=== PATIENT | male | born 1960 | race Caucasian/White ===

== ENCOUNTER 2021-11-19 09:47 | Inpatient (IN) ==
[2021-11-19 11:24] LABS: Alanine Aminotransferase 54 Units/L (7-52); Albumin 3.1 g/dL (3.5-5.7); Albumin/Globulin Ratio 1.1 (1.1-2.2); Alkaline Phosphatase 86 Units/L (34-104); Aspartate Amino Transferase 27 Units/L (13-39); BUN/Creatinine Ratio 12 (6-26); Bilirubin,Total 0.4 mg/dL (0.3-1.0); Blood Urea Nitrogen 12 mg/dL (8-23); Calcium 8.4 mg/dL (8.6-10.3); Carbon Dioxide 26 mEq/L (23-29); Chloride 109 mEq/L (98-107); Globulin 2.8 g/dL (2.4-3.5); Glucose 101 mg/dL (70-105); Osmolality,Calculated 290 (280-300); Potassium 4.4 mEq/L (3.5-5.1); Sodium 140 mEq/L (136-145); Total Protein 5.9 g/dL (6.4-8.9); eGFR For African Americans > 60 (> 60); eGFR For Non-African Americans > 60 (> 60)
[2021-11-19 11:38] LABS: Basophils # 0.1 K/mcL (0.0-0.2); Basophils % 0.5 %; Eosinophils # 0.2 K/mcL (0.0-0.6); Eosinophils % 1.7 %; Hematocrit 27.7 % (37.5-50.1); Hemoglobin 9.2 g/dL (12.9-16.9); Immature Granulocytes % 1.9 % (0-4); Lymphocytes # 1.5 K/mcL (0.6-4.6); Lymphocytes % 14.2 %; Mean Corpuscular HGB Conc 33.2 g/dL (31.6-35.5); Mean Corpuscular Hemoglobin 30.2 pg (28.0-33.3); Mean Corpuscular Volume 90.8 fL (83.0-100.0); Mean Platelet Volume 10.5 fL (9.4-12.4); Monocytes # 0.9 K/mcL (0.0-1.3); Monocytes % 8.7 %; Neutrophils # 7.7 K/mcL (1.6-8.9); Platelet Count 223 K/mcL (140-400); Red Blood Count 3.05 M/mcL (4.19-5.50); Red Cell Distribution Width 14.7 % (11.5-14.5); White Blood Count 10.6 K/mcL (4.3-11.1)
[2021-11-19 12:00] LABS: INR 1.2; Prothrombin Time 13.6 Seconds (9.4-12.1)
[2021-11-19] MEDS ORDERED: Naloxone 0.4 MG/ML INJ IVP PRN (13:16)
[2021-11-19] MEDS ORDERED: Ondansetron 4 MG/2 ML VIAL IVP PRN (13:16)
[2021-11-19] MEDS ORDERED: Acetaminophen 325 MG TABLET PO PRN (13:16)
[2021-11-19] MEDS ORDERED: Isovue-370 500 ML BOTTLE IVP ONE (15:21)
[2021-11-19] MEDS: Topiramate 25 MG TABLET PO SCH ×2 (15:51→21:04)
[2021-11-19] MEDS: carBAMazepine 200 MG TABLET PO SCH ×2 (15:51→21:04)
[2021-11-19] MEDS: Metoprolol XL (24 HR) Succ 50 MG TAB.ER.24H PO SCH (17:15)
[2021-11-19] MEDS: Gabapentin 300 MG CAPSULE PO SCH (21:04)
[2021-11-19 21:36] LABS: Hematocrit 26.1 % (37.5-50.1); Hemoglobin 8.4 g/dL (12.9-16.9)
[2021-11-20 06:16] LABS: Hematocrit 24.5 % (37.5-50.1); Hemoglobin 7.9 g/dL (12.9-16.9); Mean Corpuscular HGB Conc 32.2 g/dL (31.6-35.5); Mean Corpuscular Hemoglobin 29.5 pg (28.0-33.3); Mean Corpuscular Volume 91.4 fL (83.0-100.0); Mean Platelet Volume 10.6 fL (9.4-12.4); Platelet Count 208 K/mcL (140-400); Red Blood Count 2.68 M/mcL (4.19-5.50); Red Cell Distribution Width 14.9 % (11.5-14.5); White Blood Count 8.3 K/mcL (4.3-11.1)
[2021-11-20 06:44] LABS: BUN/Creatinine Ratio 13 (6-26); Blood Urea Nitrogen 13 mg/dL (8-23); Calcium 8.5 mg/dL (8.6-10.3); Carbon Dioxide 26 mEq/L (23-29); Chloride 107 mEq/L (98-107); Glucose 103 mg/dL (70-105); Magnesium 2.1 mg/dL (1.6-2.6); Osmolality,Calculated 288 (280-300); Potassium 3.9 mEq/L (3.5-5.1); Sodium 139 mEq/L (136-145); eGFR For African Americans > 60 (> 60); eGFR For Non-African Americans > 60 (> 60)
[2021-11-20] MEDS ORDERED: Tiotropium 10 INH DOSE IH ONE (07:26)
[2021-11-20] MEDS: Tiotropium 10 INH DOSE IH SCH (07:45)
[2021-11-20] MEDS ORDERED: Isovue-370 500 ML BOTTLE IVP ONE (08:22)
[2021-11-20] MEDS: Finasteride 5 MG TABLET PO SCH (09:29)
[2021-11-20] MEDS: Topiramate 25 MG TABLET PO SCH ×3 (09:29→20:53)
[2021-11-20] MEDS: Loratadine 10 MG TABLET PO SCH (09:29)
[2021-11-20] MEDS: Fluticasone Propionate Nasal 50 MCG/SPRAY BOTTLE NS SCH (09:29)
[2021-11-20] MEDS: Furosemide 20 MG TABLET PO SCH (09:29)
[2021-11-20] MEDS: Aspirin 81 MG TAB.CHEW PO SCH (09:29)
[2021-11-20] MEDS: carBAMazepine 200 MG TABLET PO SCH ×3 (09:29→20:52)
[2021-11-20] MEDS: Metoprolol XL (24 HR) Succ 50 MG TAB.ER.24H PO SCH (17:55)
[2021-11-20] MEDS: Gabapentin 300 MG CAPSULE PO SCH (20:52)
[2021-11-21 01:56] LABS: Basophils % 0.3 %; Eosinophils # 0.2 K/mcL (0.0-0.6); Eosinophils % 2.5 %; Hematocrit 22.9 % (37.5-50.1); Hemoglobin 7.4 g/dL (12.9-16.9); Immature Granulocytes % 1.8 % (0-4); Lymphocytes # 1.9 K/mcL (0.6-4.6); Lymphocytes % 21.6 %; Mean Corpuscular HGB Conc 32.3 g/dL (31.6-35.5); Mean Corpuscular Hemoglobin 29.4 pg (28.0-33.3); Mean Corpuscular Volume 90.9 fL (83.0-100.0); Mean Platelet Volume 10.6 fL (9.4-12.4); Monocytes # 0.8 K/mcL (0.0-1.3); Monocytes % 9.1 %; Neutrophils # 5.7 K/mcL (1.6-8.9); Nucleated Red Blood Cells 0.2 /100 WBC (0); Platelet Count 232 K/mcL (140-400); Red Blood Count 2.52 M/mcL (4.19-5.50); Segmented Neutrophils % 64.7 %; White Blood Count 8.8 K/mcL (4.3-11.1)
[2021-11-21 02:13] LABS: BUN/Creatinine Ratio 15 (6-26); Blood Urea Nitrogen 14 mg/dL (8-23); Calcium 8.5 mg/dL (8.6-10.3); Carbon Dioxide 25 mEq/L (23-29); Chloride 106 mEq/L (98-107); Glucose 91 mg/dL (70-105); Osmolality,Calculated 286 (280-300); Potassium 3.7 mEq/L (3.5-5.1); Sodium 138 mEq/L (136-145); eGFR For African Americans > 60 (> 60); eGFR For Non-African Americans > 60 (> 60)
[2021-11-21] MEDS: Tiotropium 10 INH DOSE IH SCH (07:27)
[2021-11-21] MEDS: Topiramate 25 MG TABLET PO SCH ×3 (09:17→21:22)
[2021-11-21] MEDS: carBAMazepine 200 MG TABLET PO SCH ×3 (09:17→21:21)
[2021-11-21] MEDS: Finasteride 5 MG TABLET PO SCH (09:17)
[2021-11-21] MEDS: Aspirin 81 MG TAB.CHEW PO SCH (09:17)
[2021-11-21] MEDS: Furosemide 20 MG TABLET PO SCH (09:18)
[2021-11-21] MEDS: Loratadine 10 MG TABLET PO SCH (09:18)
[2021-11-21] MEDS: Fluticasone Propionate Nasal 50 MCG/SPRAY BOTTLE NS SCH (09:18)
[2021-11-21] MEDS: Metoprolol XL (24 HR) Succ 50 MG TAB.ER.24H PO SCH (16:39)
[2021-11-21] MEDS: Gabapentin 300 MG CAPSULE PO SCH (21:21)
[2021-11-22 05:09] LABS: Basophils % 0.5 %; Eosinophils # 0.2 K/mcL (0.0-0.6); Eosinophils % 2.3 %; Hematocrit 24.2 % (37.5-50.1); Hemoglobin 7.7 g/dL (12.9-16.9); Lymphocytes # 1.7 K/mcL (0.6-4.6); Lymphocytes % 19.8 %; Mean Corpuscular HGB Conc 31.8 g/dL (31.6-35.5); Mean Corpuscular Hemoglobin 29.5 pg (28.0-33.3); Mean Corpuscular Volume 92.7 fL (83.0-100.0); Mean Platelet Volume 10.5 fL (9.4-12.4); Monocytes # 0.7 K/mcL (0.0-1.3); Monocytes % 8.2 %; Neutrophils # 5.7 K/mcL (1.6-8.9); Nucleated Red Blood Cells 0.2 /100 WBC (0); Platelet Count 216 K/mcL (140-400); Red Blood Count 2.61 M/mcL (4.19-5.50); Red Cell Distribution Width 15.3 % (11.5-14.5); Segmented Neutrophils % 67.2 %; White Blood Count 8.4 K/mcL (4.3-11.1)
[2021-11-22 05:29] LABS: BUN/Creatinine Ratio 15 (6-26); Blood Urea Nitrogen 15 mg/dL (8-23); Calcium 8.5 mg/dL (8.6-10.3); Carbon Dioxide 25 mEq/L (23-29); Chloride 108 mEq/L (98-107); Glucose 102 mg/dL (70-105); Osmolality,Calculated 291 (280-300); Potassium 3.9 mEq/L (3.5-5.1); Sodium 140 mEq/L (136-145); eGFR For African Americans > 60 (> 60); eGFR For Non-African Americans > 60 (> 60)
[2021-11-22] MEDS: Tiotropium 10 INH DOSE IH SCH (07:51)
[2021-11-22] MEDS: Furosemide 20 MG TABLET PO SCH (08:16)
[2021-11-22] MEDS: Aspirin 81 MG TAB.CHEW PO SCH (08:16)
[2021-11-22] MEDS: carBAMazepine 200 MG TABLET PO SCH ×2 (08:16→16:12)
[2021-11-22] MEDS: Topiramate 25 MG TABLET PO SCH ×2 (08:17→16:12)
[2021-11-22] MEDS: Loratadine 10 MG TABLET PO SCH (08:17)
[2021-11-22] MEDS: Fluticasone Propionate Nasal 50 MCG/SPRAY BOTTLE NS SCH (08:17)
[2021-11-22] MEDS: Finasteride 5 MG TABLET PO SCH (08:17)
[2021-11-22 10:38] VITALS: O2SAT 95
[2021-11-22 14:24] LABS: Adenovirus Not Detected (Not Detect); Bordetella Pertussis Not Detected (Not Detect); Chlamydophila pneumoniae Not Detected (Not Detect); Coronavirus 229E Not Detected (Not Detect); Coronavirus HKU1 Not Detected (Not Detect); Coronavirus NL63 Not Detected (Not Detect); Coronavirus OC43 Not Detected (Not Detect); Human Metapneumovirus Not Detected (Not Detect); Human Rhinovirus/Enterovirus Not Detected (Not Detect); Influenza A Subtype 2009 H1 Not Detected (Not Detect); Influenza B Not Detected (Not Detect); Mycoplasma pneumoniae Not Detected (Not Detect); Parainfluenza Virus 1 Not Detected (Not Detect); Parainfluenza Virus 2 Not Detected (Not Detect); Parainfluenza Virus 3 Not Detected (Not Detect); Parainfluenza Virus 4 Not Detected (Not Detect); Respiratory Syncytial Virus Not Detected (Not Detect); SARS-CoV-2 Not Detected (Not Detect)
[2021-11-22 16:06] VITALS: BP 114/55; PULSE 76; TEMP 98.1
== END 2021-11-22 17:31 | DRG 699 ==
LOC: EMEROOARM 09:47 → 2ANU 09:47
PROVIDERS: ADMIT Internal Medicine; ATTEND Internal Medicine

== ENCOUNTER 2021-11-24 00:55 | Inpatient (IN) ==
[2021-11-24] MEDS ORDERED: Melatonin 3 MG TABLET PO PRN (08:04)
[2021-11-24] MEDS ORDERED: Naloxone 0.4 MG/ML INJ IVP PRN (08:04)
[2021-11-24] MEDS ORDERED: Acetaminophen 325 MG TABLET PO PRN (08:04)
[2021-11-24] MEDS ORDERED: Ondansetron 4 MG/2 ML VIAL IVP PRN (08:04)
[2021-11-24] MEDS ORDERED: Vancomycin 2,000 MG/520 ML IV.SOLN IVPB ONE (09:00)
[2021-11-24 09:18] LABS: BUN/Creatinine Ratio 18 (6-26); Blood Urea Nitrogen 17 mg/dL (8-23); eGFR For African Americans > 60 (> 60); eGFR For Non-African Americans > 60 (> 60)
[2021-11-24] MEDS ORDERED: Nitroglycerin 0.4 MG TAB.SUBL SL PRN (09:47)
[2021-11-24 10:07] LABS: C-Reactive Protein 144 mg/L (Less than 10)
[2021-11-24] MEDS: Metoprolol XL (24 HR) Succ 50 MG TAB.ER.24H PO SCH (11:09)
[2021-11-24] MEDS: Cefepime HCl 2,000 MG in 0.9 % Sodium Chloride 10 ML IVP SCH ×3 (13:11→23:58)
[2021-11-24] MEDS: 0.9 % Sodium Chloride 1,000 ML IVC SCH ×2 (13:11→21:16)
[2021-11-24] MEDS: *HR* Heparin 5,000 UNIT/ML VIAL SQ SCH ×2 (13:12→21:08)
[2021-11-25] MEDS ORDERED: Vancomycin 1,750 MG/517.5 ML IV.SOLN IVPB SCH (01:00)
[2021-11-25 04:46] LABS: Basophils % 0.3 %; Eosinophils # 0.1 K/mcL (0.0-0.6); Hematocrit 25.8 % (37.5-50.1); Immature Granulocytes % 0.5 % (0-4); Lymphocytes # 0.9 K/mcL (0.6-4.6); Lymphocytes % 7.7 %; Mean Corpuscular Hemoglobin 28.6 pg (28.0-33.3); Mean Corpuscular Volume 92.1 fL (83.0-100.0); Mean Platelet Volume 10.4 fL (9.4-12.4); Monocytes # 0.9 K/mcL (0.0-1.3); Monocytes % 7.5 %; Platelet Count 251 K/mcL (140-400); Red Cell Distribution Width 15.7 % (11.5-14.5); White Blood Count 12.1 K/mcL (4.3-11.1)
[2021-11-25 04:59] LABS: BUN/Creatinine Ratio 19 (6-26); Blood Urea Nitrogen 16 mg/dL (8-23); Calcium 8.6 mg/dL (8.6-10.3); Carbon Dioxide 23 mEq/L (23-29); Chloride 107 mEq/L (98-107); Glucose 121 mg/dL (70-105); Osmolality,Calculated 286 (280-300); Potassium 3.6 mEq/L (3.5-5.1); Sodium 137 mEq/L (136-145); eGFR For African Americans > 60 (> 60); eGFR For Non-African Americans > 60 (> 60)
[2021-11-25] MEDS: *HR* Heparin 5,000 UNIT/ML VIAL SQ SCH (06:00)
[2021-11-25] MEDS ORDERED: *HR* HYDROcodone/Acet 5/325 mg TABLET PO PRN (07:46)
[2021-11-25 09:19] LABS: Troponin I 0.04 ng/mL (< 0.04)
[2021-11-25] MEDS: Finasteride 5 MG TABLET PO SCH (09:25)
[2021-11-25] MEDS: Fluticasone Propionate Nasal 50 MCG/SPRAY BOTTLE NS SCH (09:25)
[2021-11-25] MEDS: Topiramate 25 MG TABLET PO SCH ×3 (09:25→21:42)
[2021-11-25] MEDS: Loratadine 10 MG TABLET PO SCH (09:25)
[2021-11-25] MEDS: carBAMazepine 200 MG TABLET PO SCH ×3 (09:25→21:42)
[2021-11-25] MEDS: Furosemide 20 MG TABLET PO SCH (09:26)
[2021-11-25] MEDS: Metoprolol XL (24 HR) Succ 50 MG TAB.ER.24H PO SCH ×2 (09:26→15:46)
[2021-11-25] MEDS: Cefepime HCl 2,000 MG in 0.9 % Sodium Chloride 10 ML IVP SCH ×3 (09:26→23:57)
[2021-11-25] MEDS: Tiotropium 10 INH DOSE IH SCH (10:32)
[2021-11-25] MEDS ORDERED: Perflutren Lipid Microsphere 1.3 ML in 0.9 % Sodium Chloride 8.7 ML IVP PRN (13:25)
[2021-11-25] MEDS ORDERED: Aspirin 81 MG TAB.CHEW PO SCH (13:30)
[2021-11-25 15:23] LABS: Bacteria,Urine Few per hpf (None-Few); Bilirubin,Urine Negative (Negative); Blood,Urine Small (Negative); Clarity,Urine Turbid (Clear); Color,Urine Light-Yellow (Yellow); Glucose,Urine (UA) Normal (Normal); Hyaline Casts,Urine Few per lpf (None Seen); Ketones,Urine Negative (Negative); Leukocyte Esterase,Urine Large (Negative); Mucus,Urine Few per lpf (None-Few); Nitrite,Urine Negative (Negative); Protein,Urine 30 mg/dL (Neg-Trace); Specific Gravity,Urine 1.015 (1.010-1.025); Squamous Epithelial Cell,Urine Few per hpf (None-Few); Transitional Epi Cells,Urine Few per hpf (None-Few); Urobilinogen,Urine Normal (Normal); WBC,Urine 50-100 per hpf (0-3)
[2021-11-25] MEDS: Gabapentin 300 MG CAPSULE PO SCH (21:42)
[2021-11-26 01:51] LABS: Basophils % 0.2 %; Eosinophils # 0.2 K/mcL (0.0-0.6); Eosinophils % 1.6 %; Hematocrit 26.9 % (37.5-50.1); Hemoglobin 8.5 g/dL (12.9-16.9); Immature Granulocytes % 0.6 % (0-4); Lymphocytes # 0.8 K/mcL (0.6-4.6); Lymphocytes % 7.9 %; Mean Corpuscular HGB Conc 31.6 g/dL (31.6-35.5); Mean Corpuscular Hemoglobin 29.1 pg (28.0-33.3); Mean Corpuscular Volume 92.1 fL (83.0-100.0); Mean Platelet Volume 10.3 fL (9.4-12.4); Monocytes # 0.9 K/mcL (0.0-1.3); Monocytes % 8.2 %; Neutrophils # 8.6 K/mcL (1.6-8.9); Platelet Count 269 K/mcL (140-400); Red Blood Count 2.92 M/mcL (4.19-5.50); Red Cell Distribution Width 15.5 % (11.5-14.5); Segmented Neutrophils % 81.5 %; White Blood Count 10.6 K/mcL (4.3-11.1)
[2021-11-26 02:08] LABS: BUN/Creatinine Ratio 18 (6-26); Blood Urea Nitrogen 16 mg/dL (8-23); Calcium 8.5 mg/dL (8.6-10.3); Carbon Dioxide 21 mEq/L (23-29); Chloride 107 mEq/L (98-107); Glucose 118 mg/dL (70-105); Magnesium 1.9 mg/dL (1.6-2.6); Osmolality,Calculated 284 (280-300); Phosphorous 2.6 mg/dL (2.7-4.5); Sodium 136 mEq/L (136-145); eGFR For African Americans > 60 (> 60); eGFR For Non-African Americans > 60 (> 60)
[2021-11-26] MEDS: Cefepime HCl 2,000 MG in 0.9 % Sodium Chloride 10 ML IVP SCH ×3 (08:54→23:08)
[2021-11-26] MEDS: Loratadine 10 MG TABLET PO SCH (08:55)
[2021-11-26] MEDS: carBAMazepine 200 MG TABLET PO SCH ×3 (08:55→21:14)
[2021-11-26] MEDS: Furosemide 20 MG TABLET PO SCH (08:55)
[2021-11-26] MEDS: Finasteride 5 MG TABLET PO SCH (08:56)
[2021-11-26] MEDS: Topiramate 25 MG TABLET PO SCH ×3 (08:56→21:15)
[2021-11-26] MEDS: Fluticasone Propionate Nasal 50 MCG/SPRAY BOTTLE NS SCH (08:57)
[2021-11-26] MEDS: Tiotropium 10 INH DOSE IH SCH (09:08)
[2021-11-26] MEDS: Metoprolol XL (24 HR) Succ 50 MG TAB.ER.24H PO SCH (17:26)
[2021-11-26] MEDS: Gabapentin 300 MG CAPSULE PO SCH (21:14)
[2021-11-27 06:07] LABS: Hemoglobin 8.2 g/dL (12.9-16.9); Mean Corpuscular HGB Conc 31.5 g/dL (31.6-35.5); Mean Corpuscular Hemoglobin 28.7 pg (28.0-33.3); Mean Corpuscular Volume 90.9 fL (83.0-100.0); Mean Platelet Volume 10.3 fL (9.4-12.4); Platelet Count 266 K/mcL (140-400); Red Blood Count 2.86 M/mcL (4.19-5.50); Red Cell Distribution Width 15.4 % (11.5-14.5); White Blood Count 9.2 K/mcL (4.3-11.1)
[2021-11-27 06:24] LABS: INR 1.3; Prothrombin Time 14.8 Seconds (9.4-12.1)
[2021-11-27 06:29] LABS: BUN/Creatinine Ratio 19 (6-26); Blood Urea Nitrogen 17 mg/dL (8-23); Calcium 8.8 mg/dL (8.6-10.3); Carbon Dioxide 20 mEq/L (23-29); Chloride 104 mEq/L (98-107); Glucose 110 mg/dL (70-105); Osmolality,Calculated 280 (280-300); Potassium 3.6 mEq/L (3.5-5.1); Sodium 134 mEq/L (136-145); eGFR For African Americans > 60 (> 60); eGFR For Non-African Americans > 60 (> 60)
[2021-11-27] MEDS: Tiotropium 10 INH DOSE IH SCH (07:31)
[2021-11-27] MEDS: Cefepime HCl 2,000 MG in 0.9 % Sodium Chloride 10 ML IVP SCH (07:34)
[2021-11-27] MEDS: Furosemide 20 MG TABLET PO SCH (07:35)
[2021-11-27] MEDS: Finasteride 5 MG TABLET PO SCH (07:35)
[2021-11-27] MEDS: Topiramate 25 MG TABLET PO SCH ×3 (07:35→23:28)
[2021-11-27] MEDS: Loratadine 10 MG TABLET PO SCH (07:36)
[2021-11-27] MEDS: carBAMazepine 200 MG TABLET PO SCH ×3 (07:36→23:30)
[2021-11-27] MEDS: Fluticasone Propionate Nasal 50 MCG/SPRAY BOTTLE NS SCH (07:37)
[2021-11-27] MEDS ORDERED: Lidocaine HCL 4 ML Topical Solution (Laryng-O-Jet Kit Sterile Pak) TP ONE (15:40)
[2021-11-27] MEDS ORDERED: Iopamidol - 300 100 ML INFUS..BTL ONE (15:40)
[2021-11-27] MEDS ORDERED: Lidocaine -MPF 2% 2 ML VIAL ONE (15:43)
[2021-11-27] MEDS ORDERED: *HR* FentaNYL (PF) 100 MCG/2 ML VIAL ONE (15:43)
[2021-11-27] MEDS ORDERED: *HR* Succinylcholine 200 MG/10 ML VIAL IVP ONE (15:43)
[2021-11-27] MEDS ORDERED: *HR* Propofol 200 MG/20 ML VIAL IVP ONE (15:43)
[2021-11-27] MEDS: Metoprolol XL (24 HR) Succ 50 MG TAB.ER.24H PO SCH (16:34)
[2021-11-27] MEDS ORDERED: *HR* HYDROmorphone PF 0.5 MG/0.5 ML SYRINGE IVP PRN (16:58)
[2021-11-27] MEDS ORDERED: ceFAZolin 3,000 MG in Water for inj. (sterile) 30 ML IVP ONE (16:59)
[2021-11-27] MEDS ORDERED: *HR* Rocuronium Bromide 50 MG/5 ML VIAL ONE (17:57)
[2021-11-27] MEDS ORDERED: CeFAZolin Syr 3,000MG/30 ML 3,000 MG/30 ML SYRINGE IVPB ONE ×2 (18:30→20:08)
[2021-11-27] MEDS ORDERED: Sugammadex Sodium 200 MG/2 ML VIAL IV ONE (18:34)
[2021-11-27] MEDS ORDERED: Nitroglycerin 0.4 MG TAB.SUBL SL PRN (20:08)
[2021-11-27] MEDS ORDERED: Acetaminophen 325 MG TABLET PO PRN (20:08)
[2021-11-27] MEDS ORDERED: *HR* HYDROcodone/Acet 5/325 mg TABLET PO PRN (20:08)
[2021-11-27] MEDS ORDERED: Naloxone 0.4 MG/ML INJ IVP PRN (20:08)
[2021-11-27] MEDS ORDERED: Ondansetron 4 MG/2 ML VIAL IVP PRN (20:08)
[2021-11-27] MEDS ORDERED: Cefdinir 300 MG CAPSULE PO SCH (21:00)
[2021-11-27] MEDS: Melatonin 3 MG TABLET PO PRN (21:38)
[2021-11-27] MEDS: Gabapentin 300 MG CAPSULE PO SCH (23:27)
[2021-11-27] MEDS: Cefdinir 300 MG CAPSULE PO SCH (23:28)
[2021-11-28 03:06] LABS: Hematocrit 24.9 % (37.5-50.1); Hemoglobin 7.7 g/dL (12.9-16.9)
[2021-11-28 03:27] LABS: BUN/Creatinine Ratio 19 (6-26); Blood Urea Nitrogen 18 mg/dL (8-23); Calcium 8.4 mg/dL (8.6-10.3); Carbon Dioxide 22 mEq/L (23-29); Chloride 105 mEq/L (98-107); Glucose 98 mg/dL (70-105); Osmolality,Calculated 286 (280-300); Potassium 3.7 mEq/L (3.5-5.1); Sodium 137 mEq/L (136-145); eGFR For African Americans > 60 (> 60); eGFR For Non-African Americans > 60 (> 60)
[2021-11-28] MEDS ORDERED: Tiotropium 10 INH DOSE IH ONE (07:39)
[2021-11-28] MEDS: Tiotropium 10 INH DOSE IH SCH (07:48)
[2021-11-28] MEDS ORDERED: Iopamidol - 370 500 ML MLS IVP ONE (08:49)
[2021-11-28] MEDS: Cefdinir 300 MG CAPSULE PO SCH ×2 (10:04→21:04)
[2021-11-28] MEDS: Finasteride 5 MG TABLET PO SCH (10:04)
[2021-11-28] MEDS: Topiramate 25 MG TABLET PO SCH ×3 (10:05→21:04)
[2021-11-28] MEDS: Loratadine 10 MG TABLET PO SCH (10:05)
[2021-11-28] MEDS: Furosemide 20 MG TABLET PO SCH (10:05)
[2021-11-28] MEDS: carBAMazepine 200 MG TABLET PO SCH ×3 (10:06→21:04)
[2021-11-28] MEDS: Fluticasone Propionate Nasal 50 MCG/SPRAY BOTTLE NS SCH (10:15)
[2021-11-28 11:53] LABS: Lactate Dehydrogenase 212 Units/L (140-271); Total Protein 5.8 g/dL (6.4-8.9)
[2021-11-28 16:53] LABS: Total Protein,Pleural Fluid 4.6 g/dL
[2021-11-28] MEDS: Metoprolol XL (24 HR) Succ 50 MG TAB.ER.24H PO SCH (17:48)
[2021-11-28 18:18] LABS: Appearance of Pleural Fl Hazy (Clear)
[2021-11-28 18:22] LABS: RBC,Pleural Fluid 18000 RBC/mcL
[2021-11-28 19:39] LABS: Basophils,Pleural Fluid 0 %
[2021-11-28] MEDS: Gabapentin 300 MG CAPSULE PO SCH (21:03)
[2021-11-29] MEDS: carBAMazepine 200 MG TABLET PO SCH ×3 (09:37→22:10)
[2021-11-29] MEDS: Fluticasone Propionate Nasal 50 MCG/SPRAY BOTTLE NS SCH (09:37)
[2021-11-29] MEDS: Loratadine 10 MG TABLET PO SCH (09:37)
[2021-11-29] MEDS: Topiramate 25 MG TABLET PO SCH ×3 (09:38→22:11)
[2021-11-29] MEDS: Finasteride 5 MG TABLET PO SCH (09:38)
[2021-11-29] MEDS: Furosemide 20 MG TABLET PO SCH (09:38)
[2021-11-29] MEDS: Cefdinir 300 MG CAPSULE PO SCH ×2 (09:38→22:10)
[2021-11-29] MEDS: Tiotropium 10 INH DOSE IH SCH (10:42)
[2021-11-29] MEDS: Metoprolol XL (24 HR) Succ 50 MG TAB.ER.24H PO SCH (17:11)
[2021-11-29] MEDS: Gabapentin 300 MG CAPSULE PO SCH (22:10)
[2021-11-29] MEDS: Melatonin 3 MG TABLET PO PRN (22:11)
[2021-11-30 06:25] LABS: Basophils % 0.3 %; Eosinophils # 0.2 K/mcL (0.0-0.6); Eosinophils % 2.3 %; Hematocrit 26.4 % (37.5-50.1); Hemoglobin 8.2 g/dL (12.9-16.9); Immature Granulocytes % 0.5 % (0-4); Lymphocytes # 1.2 K/mcL (0.6-4.6); Lymphocytes % 11.1 %; Mean Corpuscular HGB Conc 31.1 g/dL (31.6-35.5); Mean Corpuscular Hemoglobin 28.1 pg (28.0-33.3); Mean Corpuscular Volume 90.4 fL (83.0-100.0); Mean Platelet Volume 10.1 fL (9.4-12.4); Monocytes # 1.1 K/mcL (0.0-1.3); Monocytes % 9.9 %; Platelet Count 248 K/mcL (140-400); Red Blood Count 2.92 M/mcL (4.19-5.50); Red Cell Distribution Width 15.2 % (11.5-14.5); Segmented Neutrophils % 75.9 %; White Blood Count 10.6 K/mcL (4.3-11.1)
[2021-11-30 06:33] LABS: BUN/Creatinine Ratio 17 (6-26); Blood Urea Nitrogen 14 mg/dL (8-23); Calcium 8.6 mg/dL (8.6-10.3); Carbon Dioxide 25 mEq/L (23-29); Chloride 103 mEq/L (98-107); Glucose 106 mg/dL (70-105); Osmolality,Calculated 283 (280-300); Potassium 3.4 mEq/L (3.5-5.1); Sodium 136 mEq/L (136-145); eGFR For African Americans > 60 (> 60); eGFR For Non-African Americans > 60 (> 60)
[2021-11-30] MEDS: Tiotropium 10 INH DOSE IH SCH (07:38)
[2021-11-30] MEDS: Fluticasone Propionate Nasal 50 MCG/SPRAY BOTTLE NS SCH (09:26)
[2021-11-30] MEDS: carBAMazepine 200 MG TABLET PO SCH ×3 (09:27→20:11)
[2021-11-30] MEDS: Furosemide 20 MG TABLET PO SCH (09:27)
[2021-11-30] MEDS: Cefdinir 300 MG CAPSULE PO SCH ×2 (09:27→20:11)
[2021-11-30] MEDS: Loratadine 10 MG TABLET PO SCH (09:27)
[2021-11-30] MEDS: Finasteride 5 MG TABLET PO SCH (09:27)
[2021-11-30] MEDS: Topiramate 25 MG TABLET PO SCH ×3 (09:27→20:12)
[2021-11-30] MEDS: Metoprolol XL (24 HR) Succ 50 MG TAB.ER.24H PO SCH (17:06)
[2021-11-30] MEDS: Gabapentin 300 MG CAPSULE PO SCH (20:11)
[2021-11-30 23:52] LABS: Fluid Source for Cholesterol PLEURAL FLUID
[2021-12-01] MEDS: Fluticasone Propionate Nasal 50 MCG/SPRAY BOTTLE NS SCH (09:38)
[2021-12-01] MEDS: Loratadine 10 MG TABLET PO SCH (09:38)
[2021-12-01] MEDS: Finasteride 5 MG TABLET PO SCH (09:38)
[2021-12-01] MEDS: carBAMazepine 200 MG TABLET PO SCH (09:38)
[2021-12-01] MEDS: Furosemide 20 MG TABLET PO SCH (09:39)
[2021-12-01] MEDS: Topiramate 25 MG TABLET PO SCH (09:39)
[2021-12-01] MEDS: Cefdinir 300 MG CAPSULE PO SCH (09:39)
[2021-12-01] MEDS: Tiotropium 10 INH DOSE IH SCH (10:21)
[2021-12-01 10:34] LABS: Cholesterol,Body Fluid 87 mg/dL
[2021-12-01 11:10] VITALS: BP 128/84; PULSE 88; TEMP 98.4; O2SAT 95
[2021-12-01 11:17] LABS: Adenovirus Not Detected (Not Detect); Bordetella Pertussis Not Detected (Not Detect); Chlamydophila pneumoniae Not Detected (Not Detect); Coronavirus 229E Not Detected (Not Detect); Coronavirus HKU1 Not Detected (Not Detect); Coronavirus NL63 Not Detected (Not Detect); Coronavirus OC43 Not Detected (Not Detect); Human Metapneumovirus Not Detected (Not Detect); Human Rhinovirus/Enterovirus Not Detected (Not Detect); Influenza A Subtype 2009 H1 Not Detected (Not Detect); Influenza B Not Detected (Not Detect); Mycoplasma pneumoniae Not Detected (Not Detect); Parainfluenza Virus 1 Not Detected (Not Detect); Parainfluenza Virus 2 Not Detected (Not Detect); Parainfluenza Virus 3 Not Detected (Not Detect); Parainfluenza Virus 4 Not Detected (Not Detect); Respiratory Syncytial Virus Not Detected (Not Detect); SARS-CoV-2 Not Detected (Not Detect)
== END 2021-12-01 13:42 | DRG 853 ==
LOC: 3ANU → SUATTDRO 08:06
PROVIDERS: ADMIT Family Medicine; ATTEND Internal Medicine